=== PATIENT | male | born 1985 | race African-American/Black ===

== ENCOUNTER 2018-09-03 14:24 | Emergency (ER) | payer OTHER ==
[~2018-09-03] VITALS: Ht 167.6 cm; Wt 77.8 kg
[2018-09-03 14:46] VITALS: BP 178/109; PULSE 118; RESP 18; Ht 167.6 cm; Wt 77.8 kg
[2018-09-03] MEDS ORDERED: CEPHALEXIN 500 MG CAP PO ONE (16:30)
[2018-09-03] MEDS ORDERED: LORAZEPAM 1 MG TAB PO ONE (16:30)
[2018-09-03] MEDS ORDERED: TRIMETHOPRIM/SULFAMETHOX (DS) TAB PO ONE (16:30)
[2018-09-03] MEDS ORDERED: BACITRACIN 0.9 GM OINT TOP ONE (16:30)
[2018-09-03] MEDS ORDERED: LORAZEPAM 2 MG INJ IM ONE (16:30)
[2018-09-03] MEDS ORDERED: SULF1TAB31 PO (16:34)
[2018-09-03] MEDS ORDERED: CEPH-443 PO (16:34)
--- NOTE | 2018-09-03 17:02 | ERD ---
ER Documentation Chief Complaint Chief Complaint nose, L ankle, R hand pain after arrested by PD 2 days ago HPI 33-year-old male presents for lesion to his left ankle. In addition he states that the police gave him SARS. Patient is rambling and is a very poor historian. Patient refuses any x-rays. Patient states that he was at another ER and they gave him antibiotics and that is the reason why he is here, just to get a prescription for antibiotics. Patient also states that he is now anxious and would like Ativan. Denies suicidal or homicidal ideation. Denies active hallucinations. Denies past medical history. Denies allergies. Denies medications. Denies surgeries. Denies alcohol, tobacco, drug use. Up to date on vaccines. ROS All systems reviewed and are negative except as per history of present illness. Medications Home Meds Active Scripts Cephalexin* (Keflex*) 500 Mg Capsule, 500 MG PO QID for cellulitis for 7 Days, CAP Prov:RICK MAJOR 09/03/18 Sulfamethoxazole/Trimethoprim* (Bactrim Ds* Tablet) 1 Each Tablet, 1 TAB PO BID for cellulitis, #14 TAB Prov:VENKATESHROSALINDYOLETTERICK 09/03/18 PMhx/Soc Hx Alcohol Use: Yes Hx Substance Use: Yes Hx Tobacco Use: Yes Smoking Status: Never smoker FmHx Family History: No diabetes, No coronary disease, No other Physical Exam Vitals Vital Signs Date Temp Pulse Resp B/P (MAP) Pulse Ox O2 O2 Flow FiO2 Time Delivery Rate 09/03/18 99.2 118 18 178/109 96 14:46 (132) Physical Exam Const: No acute distress Head: Atraumatic Eyes: Normal Conjunctiva ENT: Normal External Ears, Nose and Mouth. Neck: Full range of motion. No meningismus. Resp: Clear to auscultation bilaterally Cardio: Regular rate and rhythm, no murmurs Abd: Soft, non tender, non distended. Normal bowel sounds Skin: No petechiae or rashes Back: No midline or flank tenderness Ext: Erythematous, excoriated lesion noted to the left lateral malleolus. There is no discharge or bleeding noted. Neur: Awake and alert Psych: Denies suicidal homicidal ideation. Patient is rambling. Results 24 hrs Current Medications Medications Dose Sig/Kianna Start Time Status Last (Trade) Ordered Route PRN Stop Time Admin Dose Reason Admin Lorazepam 1 mg ONCE ONCE 09/03/18 DC (Ativan) IM 16:30 09/03/18 16:34 Cephalexin 500 mg ONCE ONCE 09/03/18 DC 09/03/18 (Keflex) PO 16:30 16:41 09/03/18 16:31 Bacitracin 1 applic ONCE ONCE 09/03/18 DC (Bacitracin TOP 16:30 Oint (Ud)) 09/03/18 16:31 1 tab ONCE ONCE 09/03/18 DC 09/03/18 Trimethoprim/ PO 16:30 16:41 09/03/18 16:34 Sulfamethoxaz ole (Bactrim (Ds)) Lorazepam 1 mg ONCE ONCE 09/03/18 DC 09/03/18 (Ativan) PO 16:30 16:41 09/03/18 16:34 Procedures/MDM 33-year-old male presents for lesion to his left ankle. In addition he states t hat the police gave him SARS. Patient is rambling and is a very poor historian. Patient refuses any x-rays. Patient states that he was at another ER and they gave him antibiotics and that is the reason why he is here, just to get a prescription for antibiotics. Patient also states that he is now anxious and would like Ativan. Denies suicidal or homicidal ideation. Denies active hallucinations. Denies past medical history. Denies allergies. Denies medications. Denies surgeries. Denies alcohol, tobacco, drug use. Up to date on vaccines. Patient appears to have possible cellulitis. Patient given Keflex and Bactrim in the ER and discharged with the same. In addition patient states that he is anxious wanted Ativan so 1 mg p.o. was given. Patient's wound was cleansed and irrigated Dressing placed. Patient did not appear to be a threat to himself or others. I have low suspicion for suicidal or homicidal ideation or acute psychosis. Low suspicion for sepsis or acute space infection. Patient eloped before he was given discharge paperwork, instructions, or prescriptions. Departure Diagnosis: Primary Impression: Cellulitis Site of cellulitis: extremity Site of cellulitis of extremity: lower extremity Laterality: unspecified laterality Qualified Codes: L03.119 - Cellulitis of unspecified part of limb Condition: Stable Patient Instructions: Cellulitis Referrals: [facility] YOU HAVE RECEIVED A MEDICAL SCREENING EXAM AND THE RESULTS INDICATE THAT YOU DO NOT HAVE A CONDITION THAT REQUIRES URGENT TREATMENT IN THE EMERGENCY DEPARTMENT. FURTHER EVALUATION AND TREATMENT OF YOUR CONDITION CAN WAIT UNTIL YOU ARE SEEN IN YOUR DOCTORS OFFICE WITHIN THE NEXT 1-2 DAYS. IT IS YOUR RESPONSIBILITY TO MAKE AN APPOINTMENT FOR FOLOW-UP CARE. IF YOU HAVE A PRIMARY DOCTOR --you should call your primary doctor and schedule an appointment IF YOU DO NOT HAVE A PRIMARY DOCTOR YOU CAN CALL OUR PHYSICIAN REFERRAL HOTLINE AT IF YOU CAN NOT AFFORD TO SEE A PHYSICIAN YOU CAN CHOSE FROM THE FOLLOWING [facility] [address] [facility]. [facility] [address] [facility] [facility] [address] [facility] [address] [facility]. [facility] [address] [facility]. [facility]. [address] Additional Instructions: FOLLOW UP WITH YOUR PRIMARY CARE PHYSICIAN TOMORROW.Return to this facility if you are not improving as expected. RICK MAJOR Sep 03, 2018 17:02
== END 2018-09-03 17:14 | disposition left against medical advice (07) ==
LOC: FTE 14:24
DX: L03.119 Cellulitis of unspecified part of limb (principal); Z87.891 Personal history of nicotine dependence
CPT/HCPCS: Z7502; Z7610; 99283

== ENCOUNTER 2018-09-05 13:30 | Emergency (ER) | payer SELFPAY ==
[~2018-09-05] VITALS: Ht 172.7 cm; Wt 80.0 kg
[~2018-09-05 13:30] MED LIST: CEPH-443 PO; SULF1TAB31 PO
[2018-09-05 14:45] VITALS: BP 149/92; PULSE 95; RESP 18; Ht 172.7 cm; Wt 80.0 kg
== END 2018-09-05 15:15 | disposition left against medical advice (07) ==
LOC: FTE 13:30
DX: Z53.21 Procedure and treatment not carried out due to patient leaving prior to being seen by health care provider (principal)